=== PATIENT | male | born 1970 | race Two or more races ===

== ENCOUNTER 2016-08-21 05:56 | Emergency (ER) | payer MEDICAID ==
[2016-08-21 06:11] VITALS: BP 135/95; PULSE 89; RESP 20; TEMP 97.5; O2SAT 98
--- NOTE | 2016-08-21 06:55 | EDPHY ---
H & P Stated Complaint: FOUND AT [facility] WHEN IT OPENED TOLD TO LEAVE, NOW C/O NECK PAIN Time Seen by Provider: 08/21/16 05:58 HPI/ROS: HPI The patient presents with neck pain which has been present for the last several hours. He has been out drinking alcohol tonight and is not sure if he injured it but when he turned his neck he developed severe pain. He went to sleep to try to see if the pain would go away, however returned. It is diffuse, sharp in nature, does not radiate. He has a prior history of a C1 fracture. He does not have any numbness or tingling of his arms or legs. He denies any head trauma. He is brought in by ambulance. REVIEW OF SYSTEMS Constitutional: No fever, no chills. Eyes: No discharge. ENT: No sore throat. Cardiovascular: No chest pain, no palpitations. Respiratory: No cough, no shortness of breath. Gastrointestinal: No abdominal pain, no vomiting. Genitourinary: No hematuria. Musculoskeletal: No back pain. Skin: No rashes. Neurological: No headache. PMHx: Prior C1 fracture per his report Soc Hx: Homeless, chronic alcohol use FHx: PHYSICAL General Appearance: Alert, no distress Eyes: Pupils equal and round no pallor or injection ENT, Mouth: Mucous membranes moist Neck demonstrates posterior midline tenderness at C5 through C7 with paraspinal tenderness as well, limited range of motion because of pain Respiratory: There are no retractions, lungs are clear to auscultation Cardiovascular: Regular rate and rhythm Gastrointestinal: Abdomen is soft and non-tender, no masses, bowel sounds normal Neurological: A&O, moves all extremities Skin: Warm and dry, no rashes Musculoskeletal: Neck is supple non tender Extremities: symmetrical, full range of motion Psychiatric: Patient is oriented X 3, there is no agitation Source: Patient, EMS - Personal History Current Tetanus/Diphtheria Vaccine: Yes Current Tetanus Diphtheria and Acellular Pertussis (TDAP): Yes - Medical/Surgical History Hx Asthma: No Hx Chronic Respiratory Disease: No Hx Diabetes: No Hx Cardiac Disease: No Hx Renal Disease: No Hx Cirrhosis: No Hx Alcoholism: No Hx HIV/AIDS: No Hx Splenectomy or Spleen Trauma: No Other PMH: C-1 FX PER PT, [employer] E[employer]ECTIVE - Social History Smoking Status: Heavy smoker Constitutional: Initial Vital Signs Temperature (C) 36.4 C 05/03/17 06:00 Heart Rate 89 08/21/16 06:00 Respiratory Rate 20 08/21/16 06:00 Blood Pressure 135/95 H 08/21/16 06:00 O2 Sat (%) 98 08/21/16 06:00 O2 Delivery Mode Room Air Allergies/Adverse Reactions: penicillin G Allergy (Verified 08/21/16 06:11) Home Medications: Medication Instructions Recorded Mirtazapine [Remeron] 30 mg PO 08/21/16 OLANZapine [Zyprexa] 10 mg PO 08/21/16 Oxycarbazepine 08/21/16 Medical Decision Making - Diagnostics Imaging Results: CT scan of C-spine without contrast demonstrates DJD, old C1 fracture, disc herniation at C6-C7, with evidence of canal stenosis, discussed with Dr. Buckley of Radiology Imaging: Discussed imaging studies w/ fisher scallop Radiologist ED Course/Re-evaluation: I discussed the patient's CT scan results with him. I was able to remove his cervical collar. I told him I would give him medication for pain. When the nurse reassessed him he said he did not want the pain medication and became quite angry, demanding to see another doctor. He then took his cervical collar out of the trash and put it on and left the department quite upset. Differential Diagnosis: This is a 46-year-old homeless male with alcohol wisdom who presents with neck pain, brought in by ambulance. He does have midline tenderness, though has paraspinal tenderness as well. He does not have any numbness or weakness. Differential diagnosis includes fracture, muscle strain, less likely radiculopathy. - Data Points Medications Given: Discontinued Medications Acetaminophen (Tylenol) 1,000 mg PO EDNOW ONE Stop: 08/21/16 07:15 Last Admin: 08/21/16 07:16 Dose: Not Given Ibuprofen (Motrin) 400 mg PO EDNOW ONE Stop: 08/21/16 07:15 Last Admin: 08/21/16 07:18 Dose: Not Given Departure - Departure Disposition: Home, Routine, Self-Care Clinical Impression: Neck pain, Alcohol abuse Condition: Good Instructions: Cervical Sprain (ED) Additional Instructions: Please follow-up with your doctor in the next 1-2 days if your neck pain continues. You should take ibuprofen or Tylenol for the pain. Referrals: JUANCARLOS RAMIREZ [Other] - As per Instructions
[2016-08-21] MEDS ORDERED: IBUPROFEN 200 MG TAB PO ONE (07:14)
[2016-08-21] MEDS ORDERED: ACETAMINOPHEN 500 MG TAB PO ONE (07:14)
== END 2016-08-21 07:25 | disposition home or self-care (01) ==
DX: M54.2 Cervicalgia (principal); F10.10 Alcohol abuse, uncomplicated; F17.200 Nicotine dependence, unspecified, uncomplicated
CPT/HCPCS: L0174

== ENCOUNTER 2016-08-23 17:58 | Emergency (ER) | payer MEDICAID ==
--- NOTE | 2016-08-23 18:03 | EDPHY ---
H & P Stated Complaint: Psychosis Source: Patient, EMS - Medical/Surgical History Hx Asthma: No Hx Chronic Respiratory Disease: No Hx Diabetes: No Hx Cardiac Disease: No Hx Renal Disease: No Hx Cirrhosis: No Hx Alcoholism: No Hx HIV/AIDS: No Hx Splenectomy or Spleen Trauma: No Other PMH: C-1 FX PER PT, [employer]IZ[employer] E[employer]ECTIVE - Social History Smoking Status: Heavy smoker Time Seen by Provider: 08/23/16 17:59 HPI/ROS: CHIEF COMPLAINT: Psychosis HISTORY OF PRESENT ILLNESS: This is a 46-year-old male patient presenting to the emergency department via EMS. Sent by the [facility] on M1 hold. ED arrival, patient states he has been hearing voices that had been telling him to hurt himself, patient states he has not had any suicide attempts. He does report he has been off his medications for several days because he could not afford the medication. he would like to be put back on his medications. REVIEW OF SYSTEMS: Constitutional: No fever, no chills. Eyes: No discharge. ENT: No sore throat. Cardiovascular: No chest pain, no palpitations. Respiratory: No cough, no shortness of breath. Gastrointestinal: No abdominal pain, no vomiting. Genitourinary: No dysuria Musculoskeletal: No back pain. Skin: No rashes. Neurological: No headache. (Adriana Reddy) - Physical Exam Exam: General Appearance: Alert, no distress. Eyes: Pupils equal and round no pallor or injection. ENT, Mouth: Mucous membranes moist. Respiratory: There are no retractions, nonlabored her effort Cardiovascular: Regular rate and rhythm. Gastrointestinal: Abdomen is soft and nontender, no masses Neurological: No focal deficits ambulatory without gait disturbance Skin: Warm and dry, no rashes. Musculoskeletal: Neck is supple nontender. Extremities: symmetrical, full range of motion. Psychiatric: Patient is oriented X 3, there is no agitation, calm. Auditory hallucinations (Adriana Reddy) Constitutional: Initial Vital Signs Temperature (C) 36.7 C 08/23/16 18:05 Heart Rate 69 08/23/16 18:05 Respiratory Rate 16 08/23/16 18:05 Blood Pressure 126/92 H 08/23/16 18:05 O2 Sat (%) 95 08/23/16 18:05 O2 Delivery Mode Room Air Allergies/Adverse Reactions: penicillin G Allergy (Verified 08/21/16 06:11) Home Medications: Medication Instructions Recorded Mirtazapine [Remeron] 30 mg PO 08/21/16 OLANZapine [Zyprexa] 10 mg PO 08/21/16 Oxycarbazepine 08/21/16 Medical Decision Making ED Course/Re-evaluation: Discussed ED plan of care: M1 hold, , CBC, Chem 7, drug screen, ETOH. And psych eval 1900: Patient has been medically cleared. EPS looking for placement for patient at this time. Patient stable, not in any distress (Adriana Reddy) The patient was evaluated and managed by the Physician Permit Agent/ Nurse Practitioner. [I discussed the patient's presentation and course with the midlevel provider with them and agree with the evaluation.] My co-signature indicates that I have reviewed this chart and I agree with the findings and plan of care as documented. I am the secondary supervising physician. I was advised by nursing staff that the patient has been accepted at [facility]. Accepting physician: EMTALA form signed by myself. (Mikaela Jackson) Differential Diagnosis: Other differential diagnosis considered but not limited to homicidal ideation, altered mental status and altered mental status due to drugs (Adriana Reddy) - Data Points Laboratory Results: Laboratory Results 08/23/16 18:30 08/23/16 18:30 08/23/16 08/23/16 08/23/16 18:30 18:30 18:00 WBC 6.08 10^3/uL 10^3/uL (3.80-9.50) RBC 4.80 10^6/uL 10^6/uL (4.40-6.38) Hgb 14.9 g/dL g/dL (13.7-17.5) Hct 43.0 % % (40.0-51.0) MCV 89.6 fL fL (81.5-99.8) MCH 31.0 pg pg (27.9-34.1) MCHC 34.7 g/dL g/dL (32.4-36.7) RDW 12.9 % % (11.5-15.2) Plt Count 231 10^3/uL 10^3/uL (150-400) MPV 10.8 fL fL (8.7-11.7) Neut % (Auto) 55.8 % % (39.3-74.2) Lymph % (Auto) 33.2 % % (15.0-45.0) Ray % (Auto) 7.7 % % (4.5-13.0) Eos % (Auto) 2.3 % % (0.6-7.6) Baso % (Auto) 0.8 % % (0.3-1.7) Nucleat RBC Rel Count 0.0 % % (0.0-0.2) Absolute Neuts (auto) 3.39 10^3/uL 10^3/uL (1.70-6.50) Absolute Lymphs (auto) 2.02 10^3/uL 10^3/uL (1.00-3.00) Absolute Monos (auto) 0.47 10^3/uL 10^3/uL (0.30-0.80) Absolute Eos (auto) 0.14 10^3/uL 10^3/uL (0.03-0.40) Absolute Basos (auto) 0.05 10^3/uL 10^3/uL (0.02-0.10) Absolute Nucleated RBC 0.00 10^3/uL 10^3/uL (0-0.01) Immature Gran % 0.2 % % (0.0-1.1) Immature Gran # 0.01 10^3/uL 10^3/uL (0.00-0.10) Sodium 139 mEq/L mEq/L (134-144) Potassium 3.8 mEq/L mEq/L (3.5-5.2) Chloride 106 mEq/L mEq/L (97-110) Carbon Dioxide 25 mEq/l mEq/l (22-31) Anion Gap 8 mEq/L mEq/L (8-16) BUN 9 mg/dL mg/dL (7-23) Creatinine 0.6 mg/dL L mg/dL (0.7-1.3) Estimated GFR > 60 Glucose 100 mg/dL mg/dL (70-100) Calcium 8.9 mg/dL mg/dL (8.5-10.4) Urine Opiates Screen NEGATIVE (NEGATIVE) Urine Barbiturates NEGATIVE (NEGATIVE) Ur Phencyclidine Scrn NEGATIVE (NEGATIVE) Ur Amphetamine Screen NEGATIVE (NEGATIVE) U Benzodiazepines Scrn NEGATIVE (NEGATIVE) Urine Cocaine Screen NEGATIVE (NEGATIVE) U Marijuana (THC) Screen NON-NEGATIVE H (NEGATIVE) Ethyl Alcohol < 10 mg/dL mg/dL (0-10) Departure - Departure Disposition: Other Psych, Not [place] Clinical Impression: Suicidal ideation Psychosis Qualifiers: Psychosis type: schizophrenia Schizophrenia type: unspecified Qualified Code(s) : F20.9 - Schizophrenia, unspecified Condition: Good Referrals: Patient,NotPresent [Unknown] - As per Instructions
[2016-08-23 18:36] VITALS: RESP 16; TEMP 98.1
[2016-08-23 18:43] LABS: % IMMATURE GRANULYOCYTES 0.2 % (0.0-1.1); ABSOLUTE IMMATURE GRANULOCYTES 0.01 10^3/uL (0.00-0.10); ADD DIFF? NO; ADD MORPH? NO; ADD SCAN? NO; ATYPICAL LYMPHOCYTE FLAG 20 (0-99); FRAGMENT RBC FLAG 0 (0-99); HEMOGLOBIN 14.9 g/dL (13.7-17.5); LEFT SHIFT FLG 0 (0-99); LIPEMIA HEMOLYSIS FLAG 90 (0-99); MEAN CELL HEMOGLOBIN CONCENTR. 34.7 g/dL (32.4-36.7); MEAN CELL VOLUME 89.6 fL (81.5-99.8); MEAN PLATELET VOLUME 10.8 fL (8.7-11.7); PLATELET CLUMPS FLAG 0 (0-99); PLATELET COUNT 231 10^3/uL (150-400); RED CELL DISTRIBUTION WIDTH 12.9 % (11.5-15.2)
[2016-08-23 18:56] LABS: ANION GAP 8 mEq/L (8-16); CALCIUM 8.9 mg/dL (8.5-10.4); CARBON DIOXIDE 25 mEq/l (22-31); CHLORIDE 106 mEq/L (97-110); CREATININE 0.6 mg/dL (0.7-1.3); ETHANOL SERUM < 10 mg/dL (0-10); GLOMERULAR FILTRATION RATE > 60; GLUCOSE 100 mg/dL (70-100); POTASSIUM 3.8 mEq/L (3.5-5.2); SODIUM 139 mEq/L (134-144)
[2016-08-23 22:39] VITALS: BP 120/85; PULSE 66; O2SAT 96
== END 2016-08-24 00:58 ==
LOC: EDUNIT#
DX: F20.9 Schizophrenia, unspecified (principal); R45.851 Suicidal ideations; F17.200 Nicotine dependence, unspecified, uncomplicated
CPT/HCPCS: 80305; G0480

== ENCOUNTER → 2016-09-06 | Outpatient (CLI) | payer MEDICAID | LOC: FIMAGING 13:18 | PROVIDERS: ATTEND Family Medicine | DX: M25.511 Pain in right shoulder (principal) ==